=== PATIENT | male | born 1990 | race African-American/Black ===

== ENCOUNTER 2017-11-06 01:12 | Emergency (ER) | payer OTHER, MEDICAID ==
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
[2017-11-06 01:39] LABS: PLATELET COUNT 167 10^3/uL (150-400)
[2017-11-06 01:49] LABS: INR 1.08 (0.83-1.16); PROTIME(PATIENT) 14.2 SEC (12.0-15.0)
[2017-11-06 04:26] VITALS: BP 118/60
--- NOTE | 2017-11-07 23:08 | CPEKG ---
Test Reason : OPEN Blood Pressure : / mmHG Vent. Rate : 099 BPM Atrial Rate : 099 BPM P-R Int : 160 ms QRS Dur : 122 ms QT Int : 369 ms P-R-T Axes : 044 -29 107 degrees QTc Int : 474 ms Sinus rhythm Left atrial enlargement LVH with IVCD and secondary repol abnrm Borderline prolonged QT interval Confirmed by Cory Trinh ([id number]) on 11/07/2017 11:08:10 PM Referred By: Confirmed By:Cory Trinh
== END 2017-11-06 04:26 | disposition home or self-care (01) ==
DX: R07.89 Other chest pain (principal); V89.2XXA Person injured in unspecified motor-vehicle accident, traffic, initial encounter; Y92.410 Unspecified street and highway as the place of occurrence of the external cause; Y99.8 Other external cause status; I50.9 Heart failure, unspecified; Z87.891 Personal history of nicotine dependence
CPT/HCPCS: 80305; 84484-PO